=== PATIENT | female | born 1945 | race Caucasian/White ===

== ENCOUNTER 2023-03-27 23:26 | Emergency (ER) | payer OTHER ==
[~2023-03-27] VITALS: Ht 167.6 cm; Wt 72.6 kg
[2023-03-27 23:32] VITALS: BP 148/85; PULSE 113; RESP 16; TEMP 98.2; O2SAT 90
[2023-03-27] MEDS ORDERED: NACL 0.9% 1,000 ML IV ONE (23:35)
[2023-03-28 00:22] LABS: BLOOD GAS BASE EXCESS -5.6 mmol/L (-2.0-2.0); BLOOD GAS HCO3 18.8 mmol/L (22-26); BLOOD GAS PCO2 32.7 mmHg (35-45); BLOOD GAS PH 7.377 (7.35-7.45); BLOOD GAS PO2 91.6 mmHg (75-100)
[2023-03-28 00:23] LABS: BLOOD GAS O2 SAT% 96.4 % (92.0-98.5)
[2023-03-28 00:48] LABS: BASOPHILS # (AUTO) 0.1 K/uL (0.00-0.22); BASOPHILS % (AUTO) 0.9 % (0.0-2.0); EOSINOPHILS # (AUTO) 0.1 K/uL (0-0.4); EOSINOPHILS % (AUTO) 1.9 % (0.0-4.0); HEMATOCRIT 31.5 % (36-48); HEMOGLOBIN 10.6 g/dL (12.0-16.0); LYMPHOCYTES # (AUTO) 0.9 K/uL (2.5-16.5); LYMPHOCYTES % (AUTO) 14.2 % (20.5-51.1); MEAN CORPUSCULAR HEMOGLOBIN 34 pg (27-31); MEAN CORPUSCULAR HGB CONC 34 g/dL (33-37); MEAN CORPUSCULAR VOLUME 100.5 fL (80-94); MONOCYTES # (AUTO) 0.5 K/uL (0.8-1.0); MONOCYTES % (AUTO) 7.4 % (1.7-9.3); NEUTROPHILS # (AUTO) 4.9 K/uL (1.8-7.7); NEUTROPHILS % (AUTO) 75.6 % (42.2-75.2); PLATELET COUNT (AUTO) 370 K/uL (140-450); RED BLOOD CELL COUNT(AUTO) 3.14 MIL/uL (4.20-5.40); RED CELL DISTRIBUTION WIDTH 19.6 % (11.6-13.7); WHITE BLOOD COUNT (AUTO) 6.5 K/uL (4.8-10.8)
[2023-03-28 01:12] LABS: INR 1.19 (0.8-1.2); PARTIAL THROMBOPLASTIN TIME 26.8 secs (22-35.6); PROTHROMBIN TIME 12.4 secs (10.8-13.4)
[2023-03-28 01:21] LABS: APPEARANCE,URINE CLEAR (CLEAR); BILIRUBIN,URINE NEGATIVE (NEGATIVE); BLOOD, URINE NEGATIVE (NEGATIVE); COLOR,URINE YELLOW (YELLOW); LEUKOCYTE ESTERASE ,URINE NEGATIVE (NEGATIVE); NITRITE, URINE NEGATIVE (NEGATIVE); PH,URINE 6.5 (5.0-9.0); PROTEIN,URINE NEGATIVE (NEGATIVE); UGLUCOSE NEGATIVE (NEGATIVE); UROBILINOGEN,URINE 0.2 EU/dL (0.2 - 1)
[2023-03-28 01:25] LABS: ALANINE AMINOTRANSFERASE 31 U/L (12-78); ALBUMIN 2.6 g/dL (3.4-5.0); ALKALINE PHOSPHATASE 40 U/L (50-136); ANION GAP 19.7 (8-16); ASPARTATE AMINOTRANSFERASE 24 U/L (15-37); CALCIUM 8.8 mg/dL (8.5-10.1); CARBON DIOXIDE 22.6 mmol/L (21-32); CHLORIDE 103 mmol/L (98-107); CREATININE 0.7 mg/dL (0.6-1.3); GLUCOSE 121 mg/dL (74-106); POTASSIUM 3.3 mmol/L (3.5-5.1); SODIUM SERUM 142 mmol/L (136-145); TOTAL BILIRUBIN 0.7 mg/dL (0.0-1.0); TOTAL PROTEIN, SERUM 6.1 g/dL (6.4-8.2); UREA NITROGEN, BLOOD 7 mg/dL (7-18)
[2023-03-28] MEDS ORDERED: levETIRAcetam 1,000 MG in NACL 0.9% 100 ML IV ONE (01:25)
[2023-03-28] MEDS ORDERED: OSMITROL 25% 12.5 GM/50 ML VIAL IV ONE ×2 (01:25→01:30)
[2023-03-28] MEDS ORDERED: levETIRAcetam 100 MG/ML VIAL IV ONE (01:28)
[2023-03-28 01:29] LABS: LACTIC ACID 1.2 mmol/L (0.4-2.0)
[2023-03-28 02:30] VITALS: BP 109/67; PULSE 113; RESP 16; TEMP 98.2; O2SAT 98
== END 2023-03-28 02:30 | disposition short-term general hospital (02) ==
LOC: MED 23:26
DX: S06.5X0A Traumatic subdural hemorrhage without loss of consciousness, initial encounter (principal); W18.30XA Fall on same level, unspecified, initial encounter; Y93.89 Activity, other specified; Y92.89 Other specified places as the place of occurrence of the external cause; Y99.8 Other external cause status
CPT/HCPCS: 36415; 36600; 70450; 71045; 80053; 81003; 82803; 83605; 83880; 84484; 85025; 85610; 85730; 86886; 86900; 86901; 87040; 87086; 93005; 96361; 96365; 96375; 99291; J1953; J2150; J7030